=== PATIENT | female | born 1970 | race Caucasian/White ===

== ENCOUNTER 2021-04-17 07:59 | Outpatient (CLI) | payer BC | END 2021-04-17 08:00 | disposition home or self-care (01) | LOC: DTY/OP 07:59 | PROVIDERS: ATTEND Specialist | DX: Z01.818 Encounter for other preprocedural examination (principal); E66.01 Morbid (severe) obesity due to excess calories; Z71.3 Dietary counseling and surveillance | CPT/HCPCS: 97802 ==

== ENCOUNTER 2021-08-09 12:00 | Inpatient (IN) | payer BC ==
[2021-08-14] MEDS ORDERED: Heparin 5,000 UNITS/ML VIAL ONE (06:36)
[2021-08-14] MEDS ORDERED: Ketorolac Tromethamine 30 MG/ML VIAL ONE (06:36)
[2021-08-14] MEDS ORDERED: Acetaminophen 500 MG TAB ONE (06:36)
[2021-08-14] MEDS ORDERED: Scopolamine 1.5 mg/72 hour Patch ONE (06:36)
[2021-08-14] MEDS ORDERED: Lidocaine 1% w/Epinephrine 1:100K 20 ML VIAL ONE (06:37)
[2021-08-14] MEDS ORDERED: Bupivacaine 0.25% 10 ML VIAL ONE (06:37)
[2021-08-14] MEDS ORDERED: Fentanyl 250 MCG/5 ML VIAL ONE (06:49)
[2021-08-14] MEDS ORDERED: Famotidine/PF 20 mg/2ml Vial ONE (06:50)
[2021-08-14] MEDS ORDERED: cefOXitin 2 GM VIAL ONE (07:18)
[2021-08-14] MEDS ORDERED: Sodium Chloride 0.9% 100 ML ONE (07:19)
[2021-08-14] MEDS ORDERED: PHENYLEPHRINE-NS 100 MCG/ML 10 ML SYRINGE ONE (07:39)
[2021-08-14] MEDS ORDERED: Esmolol 100 MG/10 ML VIAL ONE (07:39)
[2021-08-14] MEDS ORDERED: PROPOFOL 200 MG/20 ML VIAL ONE (07:39)
[2021-08-14] MEDS ORDERED: Labetalol HCl 100 MG/20 ML VIAL ONE (07:39)
[2021-08-14] MEDS ORDERED: Lidocaine 1% PF 5 ML VIAL ONE (07:39)
[2021-08-14] MEDS ORDERED: Rocuronium Bromide 10 MG/ML (10ML VIAL) ONE (07:39)
[2021-08-14] MEDS ORDERED: Ondansetron PF 4 MG/2 ML Vial ONE (07:39)
[2021-08-14] MEDS ORDERED: HYDROmorphone 2 MG/ML VIAL SLOW IVP PRN (08:12)
[2021-08-14] MEDS ORDERED: Promethazine HCl 25 MG/ML VIAL IM PRN (08:12)
[2021-08-14] MEDS ORDERED: Promethazine HCl 25 MG/ML VIAL IVPB PRN (08:12)
[2021-08-14] MEDS ORDERED: Meperidine HCl/PF 25 MG/ML VIAL SLOW IVP PRN (08:12)
[2021-08-14] MEDS ORDERED: hydrALAZINE 20 MG/ML VIAL ONE (08:23)
[2021-08-14] MEDS ORDERED: hydrALAZINE 20 MG/ML VIAL SLOW IVP PRN (09:41)
[2021-08-14] MEDS ORDERED: Acetaminophen 650 MG/20.3 ML UDCUP PO PRN (09:41)
[2021-08-14] MEDS ORDERED: Morphine 2 MG/ML VIAL SLOW IVP PRN (09:41)
[2021-08-14] MEDS ORDERED: Morphine 4 MG/ML VIAL SLOW IVP PRN (09:41)
[2021-08-14] MEDS ORDERED: Ondansetron PF 4 MG/2 ML Vial IVP PRN (09:41)
[2021-08-14] MEDS ORDERED: diphenhydrAMINE 50 MG/ML VIAL IVP PRN (09:41)
[2021-08-14] MEDS ORDERED: Hydrocodone-Acetamin 15 ML UDCUP PO PRN (09:41)
[2021-08-14] MEDS ORDERED: Promethazine HCl 25 MG/ML VIAL ONE (09:42)
[2021-08-14] MEDS ORDERED: HYDROmorphone 0.5 MG/0.5 ML SYRINGE ONE (09:42)
[2021-08-14] MEDS ORDERED: Loratadine 10 MG TAB PO PRN (09:44)
[2021-08-14] MEDS ORDERED: Fentanyl 100 MCG/2 ML VIAL ONE (09:47)
[2021-08-14 10:40] VITALS: BMI 38.4
[2021-08-14] MEDS: 1/2 NS w/KCL 20 mEq 1,000 ML IV SCH ×2 (11:07→23:24)
[2021-08-14] MEDS: Ketorolac Tromethamine 30 MG/ML VIAL IVP SCH ×3 (11:10→23:24)
[2021-08-14] MEDS: ceFAZolin (BATCH) 2 GM in Premix Bag 1 BAG IVPB SCH ×2 (16:06→23:25)
[2021-08-14] MEDS ORDERED: Promethazine HCl 25 MG in Sodium Chloride 0.9% 50 ML IVPB PRN (16:50)
[2021-08-14] MEDS ORDERED: Promethazine HCl 25 MG SUPP PR PRN (16:50)
[2021-08-14] MEDS ORDERED: Metoclopramide HCl 10 MG/2 ML VIAL IVP PRN (16:50)
[2021-08-14] MEDS ORDERED: Ondansetron ODT 8 MG TAB SL PRN (16:51)
[2021-08-14] MEDS ORDERED: Ondansetron ODT 8 MG TAB PO PRN (16:51)
[2021-08-14] MEDS ORDERED: Metoclopramide HCl 10 MG/2 ML VIAL IVP SCH (17:30)
[2021-08-14] MEDS ORDERED: Ondansetron HCl/PF 8 MG in Sodium Chloride 0.9% 50 ML IVPB SCH (17:45)
[2021-08-14] MEDS ORDERED: Enoxaparin Sodium 40 MG/0.4 ML SYRINGE SC SCH (21:00)
[2021-08-15] MEDS: Ketorolac Tromethamine 30 MG/ML VIAL IVP SCH ×2 (05:41→11:43)
[2021-08-15 06:06] LABS: #Basophils 0.1 thou/uL (0.0-0.2); #Lymphocytes 1.8 thou/uL (1.20-3.40); #Neutrophils 13.2 thou/uL (1.40-6.50); %Basophils 0.4 % (0.0-1.0); %Eosinophils 0.2 % (0.0-10.0); %Lymphocytes 11.3 % (21.0-51.0); %Monocytes 6.1 % (0.0-10.0); %Neutrophils 81.9 % (42.0-75.0); Hemoglobin 12.3 g/dL (12.0-16.0); Mean Corpuscular HGB CONC 33.2 g/dL (32.0-36.0); Mean Corpuscular Hemoglobin 29.6 pg (27.0-31.0); Mean Corpuscular Volume 89.1 fL (78.0-98.0); Mean Platelet Volume 7.7 fL (7.4-10.4); Platelet Count 305 thou/uL (130-400); RBC Distribution Width 12.9 % (11.5-14.5); Red Blood Cell (RBC) Count 4.16 mill/uL (4.20-5.40); White Blood Cell (WBC) Count 16.1 thou/uL (4.8-10.8)
[2021-08-15 06:23] LABS: Anion Gap 12 mmol/L (10-20); BUN (Urea Nitrogen) 6 mg/dL (7.0-18.7); Calc. Creatinine Clearance 144 mL/min (70-130); Calcium 8.4 mg/dL (7.8-10.44); Carbon Dioxide 23 mmol/L (22-29); Chloride 105 mmol/L (98-107); Glucose 115 mg/dL (70-105); Sodium 136 mmol/L (136-145)
[2021-08-15] MEDS: 1/2 NS w/KCL 20 mEq 1,000 ML IV SCH ×2 (08:58→09:08)
[2021-08-15] MEDS ORDERED: Pantoprazole 40 MG VIAL IVP SCH (09:00)
[2021-08-15 12:22] VITALS: BP 164/87; TEMP 98.1
== END 2021-08-15 16:15 | disposition home or self-care (01) | DRG 621 ==
LOC: SURG A 08-14 06:22 → SURG B 08-14 10:39
PROVIDERS: ADMIT Specialist; ATTEND Specialist
PROC: 0DB64Z3 Excision of Stomach, Percutaneous Endoscopic Approach, Vertical (ICD-10-PCS; principal; 2021-08-14)
DX: E66.01 Morbid (severe) obesity due to excess calories (principal); I10 Essential (primary) hypertension; Z20.822 Contact with and (suspected) exposure to COVID-19; M25.50 Pain in unspecified joint; F17.210 Nicotine dependence, cigarettes, uncomplicated; E11.9 Type 2 diabetes mellitus without complications; N39.3 Stress incontinence (female) (male); Z68.31 Body mass index [BMI] 31.0-31.9, adult; Z88.0 Allergy status to penicillin; Z23 Encounter for immunization; Z79.899 Other long term (current) drug therapy; Z90.710 Acquired absence of both cervix and uterus; Z79.84 Long term (current) use of oral hypoglycemic drugs
CPT/HCPCS: 36415; 80048; 85025; 88307; 94760; A4649; C9113; J0360; J0690; J0694; J1170; J1200; J1644; J1650; J1885; J2270; J2405; J2550; J2704; J2765; J3010; J3480; J3490; S0020; S0028

== ENCOUNTER 2021-08-12 10:28 | Outpatient (CLI) | payer BC ==
[2021-08-12 11:42] LABS: #Basophils 0.1 10x3/uL (0.0-0.2); #Eosinphils 0.3 10x3/uL (0.0-0.5); #Monocytes 0.6 10x3/uL (0.0-1.1); #Neutrophils 7.1 10x3/uL (1.5-8.4); %Basophils 0.7 % (0.0-2.0); %Eosinophils 2.8 % (0.0-6.0); %Lymphocytes 17.1 % (18.0-47.0); %Monocytes 5.7 % (0.0-10.0); %Neutrophils 73.1 % (40.0-75.0); Hemoglobin 13.1 g/dL (12.0-15.5); Mean Corpuscular HGB CONC 31.6 g/dL (32.0-36.0); Mean Corpuscular Hemoglobin 27.4 pg (27.0-33.0); Mean Corpuscular Volume 86.8 fl (81.6-98.3); Mean Platelet Volume 10.3 fl (7.4-10.4); Platelet Count 318 10x3/uL (150-450); RBC Distribution Width 14.4 % (11.5-14.5); Red Blood Cell (RBC) Count 4.78 10x6/uL (3.90-5.03); White Blood Cell (WBC) Count 9.7 10x3/uL (3.5-10.5)
[2021-08-12 11:49] LABS: ALT (SGPT) 15 U/L (8-55); AST (SGOT) 13 U/L (5-34); Alkaline Phosphatase 97 U/L (40-110); Anion Gap 11 mmol/L (10-20); BUN (Urea Nitrogen) 11 mg/dL (7.0-18.7); Bilirubin, Total 0.4 mg/dL (0.2-1.2); Calc. Creatinine Clearance 0 mL/min (70-130); Calcium 8.7 mg/dL (7.8-10.44); Carbon Dioxide 29 mmol/L (22-29); Chloride 103 mmol/L (98-107); Globulin 2.8 g/dL (2.4-3.5); Glucose 145 mg/dL (70-105); Protein, Total 6.8 g/dL (6.0-8.3); Sodium 139 mmol/L (136-145)
[2021-08-12 13:48] LABS: Hemoglobin A1c 5.7 % (4.0-6.0)
[2021-08-12 23:31] LABS: SARS-CoV-2 PCR by NAA Not Detected (NotDetected)
== END 2021-08-12 10:29 | disposition home or self-care (01) ==
LOC: LABBT 10:28
PROVIDERS: ATTEND Specialist
DX: Z01.812 Encounter for preprocedural laboratory examination (principal); E66.01 Morbid (severe) obesity due to excess calories; E11.9 Type 2 diabetes mellitus without complications; I10 Essential (primary) hypertension; Z68.35 Body mass index [BMI] 35.0-35.9, adult; Z20.822 Contact with and (suspected) exposure to COVID-19
CPT/HCPCS: 80053; 83036; 85025; U0003; U0005

== ENCOUNTER 2021-11-26 09:19 | Emergency (ER) | payer OTHER, BC ==
[~2021-11-26 09:19] MED LIST: Iopamidol-370 76% 500 ML 1 ML ONE
== END 2021-11-26 13:22 | disposition home or self-care (01) ==
LOC: ERS 09:19
DX: R51.9 Headache, unspecified (principal); K57.32 Diverticulitis of large intestine without perforation or abscess without bleeding; I10 Essential (primary) hypertension; F17.210 Nicotine dependence, cigarettes, uncomplicated; V43.53XA Car driver injured in collision with pick-up truck in traffic accident, initial encounter
CPT/HCPCS: 70450; 71260; 72125; 74177; 94760; Q9967

== ENCOUNTER 2022-08-15 08:57 | Outpatient (CLI) | payer BC | END 2022-08-15 08:58 | disposition home or self-care (01) | LOC: RAD 08:57 | PROVIDERS: ATTEND Specialist | DX: R11.10 Vomiting, unspecified (principal); K21.9 Gastro-esophageal reflux disease without esophagitis; Z98.84 Bariatric surgery status | CPT/HCPCS: 74246 ==